=== PATIENT | male | born 1990 | race African-American/Black ===

== ENCOUNTER 2016-11-13 09:42 | Emergency (ER) | payer SELFPAY ==
[2016-11-13 10:16] LABS: #Basophils 0.1 thou/uL (0.0-0.2); #Eosinphils 0.1 thou/uL (0.0-0.7); #Monocytes 0.5 thou/uL (0.11-0.59); #Neutrophils 3.6 thou/uL (1.40-6.50); %Basophils 0.7 % (0.0-1.0); %Eosinophils 0.7 % (0.0-10.0); %Lymphocytes 48.7 % (21.0-51.0); %Monocytes 5.5 % (0.0-10.0); Hematocrit 45.3 % (42.0-52.0); Mean Platelet Volume 9.2 fL (7.4-10.4); Red Blood Cell (RBC) Count 4.97 mill/uL (4.70-6.10); White Blood Cell (WBC) Count 8.2 thou/uL (4.8-10.8)
[2016-11-13] MEDS ORDERED: Ondansetron HCl/PF 4 MG/2 ML Vial ONE (10:17)
[2016-11-13 10:51] LABS: ALT (SGPT) 17 U/L (8-55); AST (SGOT) 20 U/L (5-34); Alkaline Phosphatase 49 U/L (40-150); Anion Gap 15 mmol/L (10-20); BUN (Urea Nitrogen) 13 mg/dL (8.9-20.6); Bilirubin, Total 0.7 mg/dL (0.2-1.2); Calc. Creatinine Clearance 0 mL/min (70-130); Calcium 9.2 mg/dL (7.8-10.44); Carbon Dioxide 26 mmol/L (22-29); Chloride 103 mmol/L (98-107); Estimated GFR-MDRD 89; Protein, Total 7.4 g/dL (6.0-8.3)
[2016-11-13] MEDS ORDERED: Lidocaine Viscous Sol 2% 15 ml UD Cup ONE (10:56)
[2016-11-13] MEDS ORDERED: Famotidine/PF 20 mg/2ml Vial ONE ×2 (10:56→10:57)
[2016-11-13] MEDS ORDERED: Mag-Al 1200 mg/1200 mg/30 ML UDCUP ONE (10:56)
--- NOTE | 2016-11-13 12:25 | RAD ---
PORTABLE CHEST 1 VIEW: Date: 11/13/16 Time: 1112 hours HISTORY: Vomiting blood. FINDINGS: There are changes of median sternotomy. The heart size is normal. The lungs are well expanded withou t lobar consolidation, pneumothorax, or pleural effusions. IMPRESSION: No acute process. POS: [facility]
== END 2016-11-13 12:28 | disposition home or self-care (01) ==
LOC: ERS 09:42
DX: R11.2 Nausea with vomiting, unspecified (principal); F31.9 Bipolar disorder, unspecified; F17.210 Nicotine dependence, cigarettes, uncomplicated
CPT/HCPCS: 71010; 80053; 85025; 96361; 96374; 96375; J2405; S0028

== ENCOUNTER 2017-04-14 08:52 | Emergency (ER) | payer SELFPAY ==
--- NOTE | 2017-04-14 09:20 | RAD ---
RADIOGRAPH RIGHT HAND THREE VIEWS: Date: 04-14-17 History: 26-year-old male with traumatic finger injury. FINDINGS: Evaluation of the digits is limited on the AP and oblique views because they are mildly flexed. There is no evidence of fracture or dislocation of the digits on the lateral view. No osseous abnormality or radiopaque foreign body is visualized. IMPRESSION: Negative. POS: [facility]
[2017-04-14] MEDS ORDERED: Lidocaine 4% Cream 5 GM TUBE w/ Tegaderm ONE (09:37)
--- NOTE | 2017-04-14 09:54 | RAD ---
TWO VIEWS OF THE RIGHT MIDDLE FINGER: Date: 04-14-17 Comparison: None. History: Trauma, pain. FINDINGS: Frontal and oblique radiographs of the right third finger demonstrates soft tissue swelling distally. No radiopaque foreign body, displaced fracture, or evidence of dislocation. IMPRESSION: Distal soft tissue swelling. POS: [facility]
[2017-04-14] MEDS ORDERED: Bacitracin Zinc 1 Packet ONE (10:15)
[2017-04-14] MEDS ORDERED: Adacel (T-DAP) 0.5 ML VIAL ONE (10:15)
== END 2017-04-14 10:42 | disposition home or self-care (01) ==
LOC: ERS 08:52
DX: L03.011 Cellulitis of right finger (principal); F31.9 Bipolar disorder, unspecified; F17.210 Nicotine dependence, cigarettes, uncomplicated
CPT/HCPCS: 10060; 90471; 90715; 99406

== ENCOUNTER 2017-04-17 15:23 | Observation (INO) | payer OTHER, SELFPAY ==
[~2017-04-17 15:23] MED LIST: Heparin 1,000 UNITS/ML VIAL ONE
[2017-04-17 16:30] LABS: #Eosinphils 0.1 thou/uL (0.0-0.7); #Monocytes 0.9 thou/uL (0.11-0.59); #Neutrophils 5.2 thou/uL (1.40-6.50); %Basophils 0.2 % (0.0-1.0); %Lymphocytes 24.8 % (21.0-51.0); %Monocytes 10.6 % (0.0-10.0); %Neutrophils 63.5 % (42.0-75.0); Hemoglobin 13.7 g/dL (14.0-18.0); Mean Corpuscular HGB CONC 33.5 g/dL (32.0-36.0); Mean Corpuscular Volume 89.5 fl (80.0-94.0); Mean Platelet Volume 8.5 fL (7.4-10.4); Platelet Count 154 thou/uL (130-400); RBC Distribution Width 11.8 % (11.5-14.5); Red Blood Cell (RBC) Count 4.56 mill/uL (4.70-6.10); White Blood Cell (WBC) Count 8.2 thou/uL (4.8-10.8)
[2017-04-17] MEDS ORDERED: Fentanyl 100 MCG/2 ML VIAL ONE (16:46)
[2017-04-17 16:50] LABS: ALT (SGPT) 16 U/L (8-55); AST (SGOT) 20 U/L (5-34); Albumin 4.2 g/dL (3.5-5.0); Alkaline Phosphatase 69 U/L (40-150); Anion Gap 10 mmol/L (10-20); BUN (Urea Nitrogen) 9 mg/dL (8.9-20.6); Bilirubin, Total 0.3 mg/dL (0.2-1.2); CRP (Inflammatory) 3.87 mg/dL (= or < 0.5); Calc. Creatinine Clearance 0 mL/min (70-130); Calcium 9.3 mg/dL (7.8-10.44); Carbon Dioxide 25 mmol/L (22-29); Chloride 105 mmol/L (98-107); Estimated GFR-MDRD 85; Glucose 91 mg/dL (70-105); Magnesium 2.1 mg/dL (1.6-2.6); Protein, Total 7.2 g/dL (6.0-8.3); Sodium 136 mmol/L (136-145)
--- NOTE | 2017-04-17 16:55 | RAD ---
RADIOGRAPH RIGHT HAND 3 VIEWS: 04/17/17 HISTORY: 26-year-old male with increasing soft tissue swelling despite antibiotics. FINDINGS: There is diffuse soft tissue swelling of the third digit. There is no subcutaneous emphysema, soft ti ssue calcification, or radiopaque foreign body. Bone mineralization is normal. Joint spaces are maint ained without erosions or osteophytes. No permeative, osteolytic, or osteoblastic lesion. No perioste al elevation. No fracture or dislocation. IMPRESSION: 1. Diffuse soft tissue swelling (edema) of the right third digit. 2. Osseous structures are normal. POS: [facility]
[2017-04-17] MEDS ORDERED: Ondansetron HCl/PF 4 MG/2 ML Vial IVP PRN (18:21)
[2017-04-17] MEDS ORDERED: Ondansetron ODT 4 MG TAB SL PRN (18:21)
[2017-04-17] MEDS ORDERED: Sodium Chloride 0.45% 1,000 ML IV SCH (18:30)
[2017-04-17] MEDS: HYDROcodone/Acetaminophen 5/325 mg Tablet PO PRN ×2 (18:49→23:59)
[2017-04-17 19:32] VITALS: BMI 33.2
--- NOTE | 2017-04-17 22:26 | HP ---
CHIEF COMPLAINT: Right hand pain. HISTORY OF PRESENT ILLNESS: Haseeb is a 26-year-old male who crushed his fingertip at work [employer] 1 week ago. He was seen in the emergency department after he developed an infection of this fin gertip. This was 3 days ago. He had a bedside I&D and was given antibiotics. He felt to have impro tommy. He worsened today. He developed increasing swelling and pain. He presented again to the emerg ency department and has been admitted now with flexor tenosynovitis of the finger. He has been afebr ile. He has had no open wounds or drainage over the last 2 days. He has been on Bactrim. PAST MEDICAL HISTORY: He denies active medical problems. PAST SURGICAL HISTORY: None. SOCIAL HISTORY: The patient denies tobacco or alcohol use. He does use marijuana. FAMILY HISTORY: Noncontributory. REVIEW OF SYSTEMS: Positive for right hand pain, otherwise negative for 10-point review of systems. LABORATORY STUDIES: White blood cell count is 8.2. CRP is elevated at 3.87. IMAGES: X-rays of the hand are negative. PHYSICAL EXAMINATION: VITAL SIGNS: Temperature is 98.5, pulse is 85, respiratory rate 18, 99% on room air. GENERAL: The patient is alert, sitting upright, in no apparent distress. HEENT: Normocephalic, atraumatic. RESPIRATORY: Breathing comfortably. ABDOMEN: Soft, nontender, and nondistended. MUSCULOSKELETAL: The patient's right third digit has swelling distally. He is tender to palpation a long the flexor tendon sheath to the distal aspect of the palm. He has pain to palpation as well as range of motion. He has evidence of trauma to the finger tip and a paronychia with inflammation. IMPRESSION: Paronychial infection, which has spread to a flexor tenosynovitis. PLAN: At this point, the patient will benefit from irrigation and debridement in the operating room. He is aware of risks of surgery as well as his condition, which is flexor tenosynovitis. This can lead to complications such as stiffness, pain and has led to even amputation in the past. He wants t o proceed with this. He will continue with vancomycin and Zosyn. He will be n.p.o. at midnight for surgery tomorrow morning. He will likely need to be in the hospital 2-3 days.
[2017-04-17] MEDS: Fentanyl 100 MCG/2 ML VIAL SLOW IVP PRN (23:10)
[2017-04-18] MEDS: Vancomycin HCl 1.5 GM in Sodium Chloride 0.9% 250 ML 300 ML IVPB SCH ×2 (05:05→17:22)
[2017-04-18] MEDS: Fentanyl 100 MCG/2 ML VIAL SLOW IVP PRN (05:06)
[2017-04-18] MEDS ORDERED: Dexamethasone 20 MG/5 ML VIAL ONE (07:09)
[2017-04-18] MEDS ORDERED: Lidocaine 1% PF 5 ML VIAL ONE (07:09)
[2017-04-18] MEDS ORDERED: Ondansetron HCl/PF 4 MG/2 ML Vial ONE (07:09)
[2017-04-18] MEDS ORDERED: PROPOFOL 200 MG/20 ML VIAL ONE (07:09)
[2017-04-18] MEDS ORDERED: Midazolam HCl 2 mg/2 ml Vial ONE ×2 (09:21→09:36)
[2017-04-18] MEDS ORDERED: Neomycin-Polymyxin 1 ML AMP ONE ×2 (09:30→09:49)
[2017-04-18] MEDS ORDERED: Fentanyl 250 MCG/5 ML VIAL ONE ×2 (09:36→10:46)
[2017-04-18] MEDS ORDERED: Bupivacaine 0.25% HCL 30 ML VIAL ONE (09:49)
[2017-04-18] MEDS ORDERED: Promethazine HCl 25 MG/ML VIAL IM PRN (10:30)
[2017-04-18] MEDS ORDERED: Promethazine HCl 25 MG/ML VIAL SLOW IVP PRN (10:30)
[2017-04-18] MEDS ORDERED: Ondansetron HCl/PF 4 MG/2 ML Vial IVP PRN (10:30)
--- NOTE | 2017-04-18 14:30 | OP ---
DATE OF OPERATION: 04/18/2017 OPERATION: Irrigation and debridement of right third digit felon and tenosynovitis of the digit and palm. PREOPERATIVE DIAGNOSIS: Right third digit infection with a flexor tenosynovitis. POSTOPERATIVE DIAGNOSIS: Right third digit infection with a flexor tenosynovitis. COMPLICATIONS: None. ESTIMATED BLOOD LOSS: Minimal. SURGEON: Royce Collins M.D. ANESTHESIA: General plus local. DESCRIPTION OF PROCEDURE: The patient's right arm was prepped and draped in sterile fashion. We gav e him intravenous antibiotics. A tourniquet was inflated. At this point, the right finger was incis ed. We made an incision first over the radial aspect of the distal digit. We encountered copious pu rulence. There was a large abscess with necrotic tissue underneath. There was exposed distal phalan x, bone and nail. We thoroughly irrigated this and cultured. We then made an incision over the flex or crease of the DIP joint. A second incision was made over the palm. We worked more deeply down to the tendon sheath. We inserted an Angiocath and thoroughly irrigated the sheath. There was pus wit hin the sheath as well. We used irrigant. Once we eradicated all of the purulence, we proceeded with packing of the distal wound with iodoform gauze as well as dip wound. We loosely closed the rem aining wounds. A sterile dressing was applied. The patient was taken to the recovery room in good c ondition without complication.
[2017-04-18] MEDS: cefTRIAXone\\ROCEPHIN 1 GM, Syringe 0.4 ML in Sterile Water 9.6 ML SLOW IVP SCH (17:23)
[2017-04-18] MEDS: HYDROcodone/Acetaminophen 5/325 mg Tablet PO PRN ×2 (17:23→22:28)
[2017-04-19] MEDS: HYDROcodone/Acetaminophen 5/325 mg Tablet PO PRN ×3 (05:28→20:33)
[2017-04-19] MEDS: Vancomycin HCl 1.5 GM in Sodium Chloride 0.9% 250 ML 300 ML IVPB SCH ×2 (05:29→17:30)
[2017-04-19 05:31] LABS: #Eosinphils 0.1 thou/uL (0.0-0.7); #Lymphocytes 2.4 thou/uL (1.20-3.40); #Monocytes 0.9 thou/uL (0.11-0.59); %Basophils 0.1 % (0.0-1.0); %Eosinophils 0.7 % (0.0-10.0); %Lymphocytes 28.7 % (21.0-51.0); %Monocytes 10.7 % (0.0-10.0); %Neutrophils 59.8 % (42.0-75.0); Hemoglobin 12.5 g/dL (14.0-18.0); Mean Corpuscular HGB CONC 32.7 g/dL (32.0-36.0); Mean Corpuscular Hemoglobin 29.5 pg (27.0-31.0); Mean Platelet Volume 8.5 fL (7.4-10.4); Platelet Count 179 thou/uL (130-400); RBC Distribution Width 11.7 % (11.5-14.5); Red Blood Cell (RBC) Count 4.24 mill/uL (4.70-6.10); White Blood Cell (WBC) Count 8.3 thou/uL (4.8-10.8)
[2017-04-19] MEDS: Fentanyl 100 MCG/2 ML VIAL SLOW IVP PRN (10:51)
[2017-04-19] MEDS: cefTRIAXone\\ROCEPHIN 1 GM, Syringe 0.4 ML in Sterile Water 9.6 ML SLOW IVP SCH (16:39)
[2017-04-19] MEDS ORDERED: VANCOMYCIN IV IVPB PRN (20:03)
[2017-04-20] MEDS: HYDROcodone/Acetaminophen 5/325 mg Tablet PO PRN ×3 (05:08→21:10)
[2017-04-20 05:49] LABS: Vancomycin, Trough 12.1 ug/mL
[2017-04-20] MEDS: Vancomycin HCl 1.75 GM in Sodium Chloride 0.9% 500 ML IVPB SCH ×3 (06:11→22:09)
[2017-04-20] MEDS: Fentanyl 100 MCG/2 ML VIAL SLOW IVP PRN ×2 (08:26→10:36)
[2017-04-20] MEDS: Lidocaine 4% Topical Sol 50 ML BOT TOP SCH (10:40)
--- NOTE | 2017-04-20 13:02 | CON ---
DATE OF CONSULTATION: 04/20/2017 REASON FOR CONSULTATION: Tenosynovitis. 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 The patient was seen at the emergency room after development of inflammatory changes , had a limited debridement. It does not appear that any samples were submitted for cultures and the patient was released on antimicrobial therapy because of persistence and worsening of inflammatory p rocess. The patient returned to the emergency room 2 days ago, has been admitted for management. Joseph whitehead had surgical intervention by Dr. Collins and there was evidence of abscess in necrotic tissue underneath, copious purulence and there was exposed distal phalanx, bone and nail. This was irrigat ed and an Angiocath was used to irrigate the sheath of the tendon with purulent exudate obtained, the area was packed. Currently, denies any headaches, visual symptoms, sore throat, odynophagia, dyspha rahel, no cough or sputum production or chest pain. No abdominal pain, diarrhea, or genitourinary symp toms. No other joint symptoms or neurological symptoms. 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 Also bipolar disorder. SOCIAL HISTORY: Current every other day smoker, drinks occasionally. Works in a [employer] in [facility]. FAMILY HISTORY: Noncontributory. ALLERGY HISTORY: Negative. MEDICINES: Had been on ibuprofen and Bactrim and currently receiving ceftriaxone, lidocaine and vanc omycin. PHYSICAL EXAMINATION: VITAL SIGNS: Temperature max 98.9, blood pressure 129/79, pulse 68, respirations 16, O2 sat 98%. GENERAL: Appears in no distress, pleasant. SKIN: Right hand has a dressing which was not removed. No lymphadenopathy. HEENT: Normal. NECK: Supple. LUNGS: With symmetric clear breath sounds. HEART: S1, S2, regular rate. No S3, S4. ABDOMEN: Soft, not distended or tender. GENITOURINARY: No genital abnormalities. NEUROLOGIC: Nonfocal. LABORATORY DATA: White cell count 8.2, hemoglobin 13, platelets 154 with normal differential. Chemi stry essentially normal except for CRP 83.87. Microbiology with alpha hemolytic streptococcus identi fied from the surgical specimen yet to be fully identified and susceptibility tested. ASSESSMENT: Injury to right hand middle finger distal aspect with development of possible likely ost eomyelitis and tenosynovitis following paronychia. DISCUSSION: The patient to continue Rocephin and vancomycin until have the final identification and susceptibility testing of the organism and then depending on results, may need placement of PICC line or not. According to susceptibility results, nonetheless, will need treatment for at least 3 weeks if not longer, probably longer in view of the likely bone involvement. Check HIV and hepatitis C ser ology.
--- NOTE | 2017-04-20 13:51 | PRG ---
DATE OF SERVICE: 04/20/2017 SUBJECTIVE: Timmy was now postop day #2 from incision, drainage, washout of a failed flexor tenosynov itis treated as an outpatient. He is currently on Rocephin and vancomycin and I believe Dr. Pallavi rodriguez recommended continuing this until final susceptibilities arrived. The preliminary cultures demonst rated alpha hemolytic streptococcus. PHYSICAL EXAMINATION: EXTREMITIES: There is no significant drainage. He has good digital excursion. Dressing is intact. ASSESSMENT: A 26-year-old -[place] male with a right index finger flexor tenosynovitis with Streptococcus, sensitivities pending. PLAN: Continue antibiotics. We will probably discharge with antibiotic recommendations once final s ensitivity of urine.
[2017-04-20 14:26] LABS: HIV (1/2) Antibody/Antigen Non-Reactive (NonReactive); HIV 1/2 INDEX 0.13 S/CO (<1.00); Hep C IgG Ab Non-Reactive (NonReactive); Hep C Index 0.09 S/CO (0-0.79)
[2017-04-20] MEDS: cefTRIAXone\\ROCEPHIN 1 GM, Syringe 0.4 ML in Sterile Water 9.6 ML SLOW IVP SCH (18:31)
[2017-04-21] MEDS: HYDROcodone/Acetaminophen 5/325 mg Tablet PO PRN ×4 (05:57→21:32)
[2017-04-21] MEDS: Vancomycin HCl 1.75 GM in Sodium Chloride 0.9% 500 ML IVPB SCH (05:57)
[2017-04-21] MEDS: Fentanyl 100 MCG/2 ML VIAL SLOW IVP PRN (10:03)
[2017-04-21] MEDS: Lidocaine 4% Topical Sol 50 ML BOT TOP SCH (10:57)
--- NOTE | 2017-04-21 15:55 | PRG ---
DATE OF SERVICE: 04/21/2017 SUBJECTIVE: Feeling well. Minor pain, right hand. No respiratory symptoms or abdominal pain, no di arrhea. OBJECTIVE: VITAL SIGNS: Temperature normal. LUNGS: Clear. HEART: S1, S2, regular rate. ABDOMEN: Soft. Right hand with bulky dressing not removed. LABORATORY DATA: Microbiology with Streptococcus anginosus group. ASSESSMENT AND DISCUSSION: Injury of right hand middle finger with osteomyelitis and tenosynovitis f ollowing paronychia. We will continue Rocephin for a few weeks. Monitor labs and eventually transit ioned to oral Augmentin at the end of 2-4 weeks of treatment with IV Rocephin. We will arrange hospital for behavioral medicine Oncology fusion area.
[2017-04-21 17:24] LABS: Vancomycin, Trough 14.9 ug/mL
[2017-04-21] MEDS: cefTRIAXone\\ROCEPHIN 1 GM, Syringe 0.4 ML in Sterile Water 9.6 ML SLOW IVP SCH (17:43)
[2017-04-22] MEDS: HYDROcodone/Acetaminophen 5/325 mg Tablet PO PRN ×2 (08:16→12:44)
[2017-04-22] MEDS: Fentanyl 100 MCG/2 ML VIAL SLOW IVP PRN (09:29)
[2017-04-22] MEDS: Lidocaine 4% Topical Sol 50 ML BOT TOP SCH (10:33)
[2017-04-22 15:26] VITALS: BP 124/85; TEMP 98.5
--- NOTE | 2017-04-22 16:04 | SPC ---
SONOGRAPHIC-GUIDED LEFT UPPER EXTREMITY PICC PLACEMENT: HISTORY: Osteomyelitis. FINDINGS: After explaining the procedure and answering all questions, the left upper extremity was prepped and draped in the usual sterile fashion. Sterile technique, buffered local anesthesia, sonographic allan nce, and a 22 gauge needle were used to carefully access the left basilic vein. Standard technique w as then used to place the tip of a 5 [place]ic single-lumen PICC so that the tip lies at the level of th e cerebrovascular accident. Catheter was flushed and secured externally. The patient tolerated the procedure well and was returned in unchanged condition. Fluoro time=0 seconds. IMPRESSION: Left upper extremity PICC is ready for use. POS: [facility]
--- NOTE | 2017-04-23 15:38 | DIS ---
DATE OF ADMISSION: 04/17/2017 DATE OF DISCHARGE: 04/22/2017 ADMITTING DIAGNOSIS: Flexor tenosynovitis. PROCEDURES PERFORMED Irrigation and debridement of right hand third digit, thumb and tenosynovitis o f the digit and palm ADMITTING PHYSICIAN: Dr. Royce Collins CONSULTS: Dr. Olivo BRIEF HOSPITAL COURSE: This is a 26-year-old male who presented to the emergency department with rig ht hand third digit flexor tenosynovitis. The patient has failed outpatient therapy. The patient wa s admitted, taken to the operating room for irrigation and debridement. He was placed on IV antibiot ics per the Infectious Disease team. A PICC line was placed. The patient recovered well. The patie nt received vancomycin and Rocephin IV while in the hospital. The patient was tolerating p.o., ambul ating and voiding without difficulty upon discharge. DISCHARGE DISPOSITION: Home. DISCHARGE CONDITION: Stable. PROGNOSIS: Good. DISCHARGE MEDICATIONS: See medication reconciliation. The patient was instructed to follow up with Infectious Disease, Wound Care, and Orthopedics as outpa tient.
== END 2017-04-22 15:21 | disposition home or self-care (01) ==
LOC: ERS 15:23 → SURG A 16:21
PROVIDERS: ADMIT Orthopaedic Surgery; ATTEND Orthopaedic Surgery
PROC: 0L870ZZ Division of Right Hand Tendon, Open Approach (ICD-10-PCS; principal; 2017-04-18)
DX: M65.841 Other synovitis and tenosynovitis, right hand (principal); L03.011 Cellulitis of right finger; F17.200 Nicotine dependence, unspecified, uncomplicated; Z79.2 Long term (current) use of antibiotics
CPT/HCPCS: 29125; 36415; 36569; 80053; 80202; 83735; 85025; 86140; 86803; 87040; 87070; 87205; 87389; 96365; 96366; 96375; 96376; 99406; A4216; C1751; G0378; J0696; J1100; J1644; J2001; J2250; J2405; J2704; J3010; J3370; J7050; S0020

== ENCOUNTER 2017-04-28 09:11 | Outpatient (CLI) | payer SELFPAY ==
[2017-04-28] MEDS ORDERED: Sodium Chloride 0.9% 15 ML NEB ONE (16:38)
== END 2017-04-28 09:12 | disposition home or self-care (01) ==
LOC: WCC 09:11
PROVIDERS: ATTEND Family Medicine
DX: T81.89XD Other complications of procedures, not elsewhere classified, subsequent encounter (principal)
CPT/HCPCS: 99211; A4218; G0463

== ENCOUNTER 2018-04-15 14:19 | Emergency (ER) | payer OTHER, SELFPAY ==
--- NOTE | 2018-04-15 16:09 | RAD ---
PA AND LATERAL CHEST: Date: 04/15/18 INDICATION: Difficulty breathing. COMPARISON: Prior exam dated 02/15/09. FINDINGS: Midline sternotomy changes are stable. Heart size is within normal limits. Lungs are clear. No acute osseous abnormality is evident. IMPRESSION: No acute cardiopulmonary abnormality. POS: [facility]
[2018-04-15 16:45] LABS: #Basophils 0.1 thou/uL (0.0-0.2); #Eosinphils 0.1 thou/uL (0.0-0.7); #Lymphocytes 2.8 thou/uL (1.20-3.40); #Monocytes 0.5 thou/uL (0.11-0.59); #Neutrophils 4.2 thou/uL (1.40-6.50); %Basophils 0.7 % (0.0-1.0); %Eosinophils 1.8 % (0.0-10.0); %Monocytes 6.2 % (0.0-10.0); %Neutrophils 54.4 % (42.0-75.0); Hemoglobin 14.7 g/dL (14.0-18.0); Mean Corpuscular HGB CONC 32.4 g/dL (32.0-36.0); Mean Corpuscular Hemoglobin 29.6 pg (27.0-31.0); Mean Corpuscular Volume 91.4 fL (78.0-98.0); Mean Platelet Volume 9.5 fL (7.4-10.4); Platelet Count 157 thou/uL (130-400); RBC Distribution Width 12.3 % (11.5-14.5); Red Blood Cell (RBC) Count 4.96 mill/uL (4.70-6.10); White Blood Cell (WBC) Count 7.6 thou/uL (4.8-10.8)
[2018-04-15 17:09] LABS: ALT (SGPT) 15 U/L (8-55); AST (SGOT) 18 U/L (5-34); Albumin 4.5 g/dL (3.5-5.0); Alkaline Phosphatase 60 U/L (40-150); Anion Gap 12 mmol/L (10-20); BUN (Urea Nitrogen) 10 mg/dL (8.9-20.6); Bilirubin, Total 0.4 mg/dL (0.2-1.2); CK (CPK) 266 U/L (30-200); Calc. Creatinine Clearance 0 mL/min (70-130); Calcium 9.9 mg/dL (7.8-10.44); Carbon Dioxide 27 mmol/L (22-29); Chloride 106 mmol/L (98-107); Estimated GFR-MDRD Greater than 90; Globulin 3.1 g/dL (2.4-3.5); Glucose 83 mg/dL (70-105); Lipase 12 U/L (8-78); Potassium 3.8 mmol/L (3.5-5.1); Protein, Total 7.6 g/dL (6.0-8.3); Sodium 141 mmol/L (136-145)
== END 2018-04-15 17:48 | disposition home or self-care (01) ==
LOC: ERS 14:19
DX: R07.81 Pleurodynia (principal); F31.9 Bipolar disorder, unspecified; F17.210 Nicotine dependence, cigarettes, uncomplicated
CPT/HCPCS: 71046; 80053; 82550; 83690; 83880; 84484; 85025; 85379; 93005; 94760

== ENCOUNTER 2018-05-14 10:53 | Emergency (ER) | payer SELFPAY ==
[2018-05-14] MEDS ORDERED: Ondansetron PF 4 MG/2 ML Vial ONE (11:37)
[2018-05-14 12:06] LABS: #Lymphocytes 2.5 thou/uL (1.20-3.40); #Monocytes 0.5 thou/uL (0.11-0.59); #Neutrophils 5.7 thou/uL (1.40-6.50); %Basophils 0.5 % (0.0-1.0); %Eosinophils 0.4 % (0.0-10.0); %Lymphocytes 28.5 % (21.0-51.0); %Monocytes 6.1 % (0.0-10.0); %Neutrophils 64.4 % (42.0-75.0); Hemoglobin 14.4 g/dL (14.0-18.0); Mean Corpuscular HGB CONC 33.8 g/dL (32.0-36.0); Mean Corpuscular Hemoglobin 30.2 pg (27.0-31.0); Mean Corpuscular Volume 89.3 fL (78.0-98.0); Mean Platelet Volume 9.8 fL (7.4-10.4); Platelet Count 145 thou/uL (130-400); RBC Distribution Width 12.3 % (11.5-14.5); Red Blood Cell (RBC) Count 4.77 mill/uL (4.70-6.10); White Blood Cell (WBC) Count 8.8 thou/uL (4.8-10.8)
[2018-05-14 12:31] LABS: ALT (SGPT) 21 U/L (8-55); AST (SGOT) 20 U/L (5-34); Albumin 4.8 g/dL (3.5-5.0); Alkaline Phosphatase 60 U/L (40-150); Anion Gap 13 mmol/L (10-20); BUN (Urea Nitrogen) 8 mg/dL (8.9-20.6); Bilirubin, Total 0.6 mg/dL (0.2-1.2); Calc. Creatinine Clearance 0 mL/min (70-130); Calcium 10.2 mg/dL (7.8-10.44); Carbon Dioxide 28 mmol/L (22-29); Chloride 103 mmol/L (98-107); Estimated GFR-MDRD 81; Globulin 2.9 g/dL (2.4-3.5); Glucose 97 mg/dL (70-105); Lipase 5 U/L (8-78); Potassium 3.7 mmol/L (3.5-5.1); Protein, Total 7.7 g/dL (6.0-8.3); Sodium 140 mmol/L (136-145)
== END 2018-05-14 13:22 | disposition home or self-care (01) ==
LOC: ERS 10:53
DX: R11.2 Nausea with vomiting, unspecified (principal); R19.7 Diarrhea, unspecified; F31.9 Bipolar disorder, unspecified; F17.200 Nicotine dependence, unspecified, uncomplicated
CPT/HCPCS: 80053; 83690; 85025; 96361; 96374; J2405

== ENCOUNTER 2018-08-14 18:44 | Emergency (ER) | payer SELFPAY | END 2018-08-14 19:06 | disposition home or self-care (01) | LOC: ERS 18:44 | DX: H61.22 Impacted cerumen, left ear (principal); F31.9 Bipolar disorder, unspecified | CPT/HCPCS: 99282 ==

== ENCOUNTER 2019-10-21 01:26 | Emergency (ER) | payer SELFPAY ==
[2019-10-21 02:45] LABS: Bilirubin Negative (Negative); Blood, Urine Negative (Negative); Clarity Clear (Clear); Glucose, Urine (Dipstick) Normal (Negative); Ketone, Urine Negative (Negative); Leukocyte Negative Leu/uL (Negative); Nitrite Negative (Negative); Protein, Urine (Dipstick) Negative (Neg-Trace); Specific Gravity, Urine 1.024 (1.002-1.036); Urobilinogen Normal mg/dL (Less than 2)
[2019-10-21] MEDS ORDERED: Lidocaine 1% PF 5 ML VIAL ONE (02:51)
[2019-10-21] MEDS ORDERED: cefTRIAXone\\ROCEPHIN 250 MG VIAL ONE (02:51)
[2019-10-21] MEDS ORDERED: Azithromycin 250 MG TAB ONE (02:51)
[2019-10-22 16:03] LABS: Chlam.trachomatis by PCR,Urine Not Detected (NotDetected)
== END 2019-10-21 03:00 | disposition home or self-care (01) ==
LOC: ERS 01:26
DX: N50.89 Other specified disorders of the male genital organs (principal); Z20.2 Contact with and (suspected) exposure to infections with a predominantly sexual mode of transmission; F31.9 Bipolar disorder, unspecified
CPT/HCPCS: 81003; 87255; 87491; 87591; 96372; 99283; J0696

== ENCOUNTER 2019-11-30 18:11 | Emergency (ER) | payer SELFPAY ==
[2019-11-30 18:28] LABS: #Eosinphils 0.1 thou/uL (0.0-0.7); #Lymphocytes 4.9 thou/uL (1.20-3.40); #Monocytes 0.7 thou/uL (0.11-0.59); %Basophils 0.3 % (0.0-1.0); %Eosinophils 0.9 % (0.0-10.0); %Lymphocytes 45.6 % (21.0-51.0); %Monocytes 6.2 % (0.0-10.0); Hemoglobin 14.6 g/dL (14.0-18.0); Mean Corpuscular HGB CONC 33.2 g/dL (32.0-36.0); Mean Corpuscular Hemoglobin 29.7 pg (27.0-31.0); Mean Corpuscular Volume 89.3 fL (78.0-98.0); Mean Platelet Volume 9.8 fL (7.4-10.4); Platelet Count 171 thou/uL (130-400); RBC Distribution Width 12.8 % (11.5-14.5); Red Blood Cell (RBC) Count 4.94 mill/uL (4.70-6.10); White Blood Cell (WBC) Count 10.7 thou/uL (4.8-10.8)
[2019-11-30 18:35] LABS: Prothrombin Time 11.8 sec (12.0-14.7)
[2019-11-30 18:36] LABS: INR-International Normal Ratio 0.9
--- NOTE | 2019-11-30 18:41 | CT ---
CT OF BRAIN PERFORMED WITHOUT CONTRAST ENHANCEMENT: 11/30/19 HISTORY: Left sided facial droop. The ventricular and cisternal system is within normal limits. There is no signs of intracerebral hemo rrhage or extra-axial fluid collection. The mastoid air cells and visualized sinuses are clear. IMPRESSION: No acute intracranial abnormalities. Findings telephoned to Doroteo Vance at 1834 hours. POS: [facility]
[2019-11-30 18:52] LABS: ALT (SGPT) 27 U/L (8-55); AST (SGOT) 24 U/L (5-34); Albumin 4.5 g/dL (3.5-5.0); Alkaline Phosphatase 59 U/L (40-110); Anion Gap 15 mmol/L (10-20); BUN (Urea Nitrogen) 11 mg/dL (8.9-20.6); Bilirubin, Total 0.3 mg/dL (0.2-1.2); Calc. Creatinine Clearance 0 mL/min (70-130); Calcium 9.8 mg/dL (7.8-10.44); Carbon Dioxide 26 mmol/L (22-29); Chloride 105 mmol/L (98-107); Estimated GFR-MDRD 73; Globulin 3.5 g/dL (2.4-3.5); Glucose 106 mg/dL (70-105); Potassium 3.7 mmol/L (3.5-5.1); Sodium 142 mmol/L (136-145)
--- NOTE | 2019-12-02 11:17 | EKG ---
Test Reason : Blood Pressure : / mmHG Vent. Rate : 105 BPM Atrial Rate : 105 BPM P-R Int : 142 ms QRS Dur : 076 ms QT Int : 336 ms P-R-T Axes : 056 000 046 degrees QTc Int : 444 ms Sinus tachycardia Possible Left atrial enlargement Left ventricular hypertrophy Abnormal ECG Confirmed by KATIE GUO ([id number]), loan expeditor JOÃO NAVARRETE ([id number]) on 12/02/2019 11:16:51 AM Referred By: Confirmed By:KATIE GUO
== END 2019-11-30 19:15 | disposition home or self-care (01) ==
LOC: ERS 18:11
DX: G51.0 Bell's palsy (principal); N17.9 Acute kidney failure, unspecified; F31.9 Bipolar disorder, unspecified; F41.9 Anxiety disorder, unspecified
CPT/HCPCS: 36416; 70450; 80053; 85025; 85610; 85730; 93005

== ENCOUNTER 2020-04-07 03:08 | Emergency (ER) | payer SELFPAY ==
[2020-04-07] MEDS ORDERED: Dexamethasone 4 MG TAB ONE (04:12)
[2020-04-07] MEDS ORDERED: Bicillin LA 1.2 MILLION UNITS/2 ML SYRINGE ONE (04:18)
== END 2020-04-07 04:45 | disposition home or self-care (01) ==
LOC: ERS 03:08
DX: J02.0 Streptococcal pharyngitis (principal)
CPT/HCPCS: 87430; 96372; 99283; J0561; J8540

== ENCOUNTER 2020-12-16 10:30 | Emergency (ER) | payer SELFPAY ==
[2020-12-16] MEDS ORDERED: Acetaminophen 500 MG TAB ONE (11:44)
[2020-12-16] MEDS ORDERED: Ketorolac Tromethamine 30 MG/ML VIAL ONE (11:44)
[2020-12-16 12:00] LABS: #Eosinphils 0.1 thou/uL (0.0-0.7); #Lymphocytes 2.5 thou/uL (1.20-3.40); #Monocytes 0.4 thou/uL (0.11-0.59); #Neutrophils 2.4 thou/uL (1.40-6.50); %Basophils 0.5 % (0.0-1.0); %Eosinophils 2.1 % (0.0-10.0); %Lymphocytes 45.6 % (21.0-51.0); %Monocytes 7.5 % (0.0-10.0); %Neutrophils 44.4 % (42.0-75.0); Hemoglobin 14.1 g/dL (14.0-18.0); Mean Corpuscular HGB CONC 33.1 g/dL (32.0-36.0); Mean Corpuscular Hemoglobin 29.4 pg (27.0-31.0); Mean Platelet Volume 9.4 fL (7.4-10.4); Platelet Count 167 thou/uL (130-400); RBC Distribution Width 12.6 % (11.5-14.5); Red Blood Cell (RBC) Count 4.81 mill/uL (4.70-6.10); White Blood Cell (WBC) Count 5.4 thou/uL (4.8-10.8)
[2020-12-16 12:24] LABS: Anion Gap 10 mmol/L (10-20); BUN (Urea Nitrogen) 12 mg/dL (8.9-20.6); Calc. Creatinine Clearance 0 mL/min (70-130); Calcium 9.3 mg/dL (7.8-10.44); Carbon Dioxide 28 mmol/L (22-29); Chloride 109 mmol/L (98-107); Glucose 96 mg/dL (70-105); Potassium 4.2 mmol/L (3.5-5.1); Sodium 143 mmol/L (136-145)
[2020-12-16] MEDS ORDERED: Cyclobenzaprine 10 MG TAB ONE (12:55)
== END 2020-12-16 14:45 | disposition home or self-care (01) ==
LOC: ERS 10:30
DX: M54.31 Sciatica, right side (principal); I10 Essential (primary) hypertension; G51.0 Bell's palsy
CPT/HCPCS: 36415; 80048; 85025; 85379; 96372; 99283; J1885

== ENCOUNTER 2021-01-25 10:25 | Emergency (ER) | payer SELFPAY ==
[2021-01-25 13:11] LABS: ALT (SGPT) 20 U/L (8-55); AST (SGOT) 22 U/L (5-34); Albumin 4.6 g/dL (3.5-5.0); Alkaline Phosphatase 56 U/L (40-110); Anion Gap 13 mmol/L (10-20); BUN (Urea Nitrogen) 11 mg/dL (8.9-20.6); Bilirubin, Total 0.8 mg/dL (0.2-1.2); Calc. Creatinine Clearance 0 mL/min (70-130); Calcium 9.9 mg/dL (7.8-10.44); Carbon Dioxide 26 mmol/L (22-29); Chloride 103 mmol/L (98-107); Globulin 3.3 g/dL (2.4-3.5); Glucose 88 mg/dL (70-105); Potassium 4.2 mmol/L (3.5-5.1); Protein, Total 7.9 g/dL (6.0-8.3); Sodium 138 mmol/L (136-145)
[2021-01-25 13:28] LABS: HIV (1/2) Antibody/Antigen Non-Reactive (NonReactive); HIV 1/2 INDEX 0.15 S/CO (<1.00)
[2021-01-25] MEDS ORDERED: Ketorolac Tromethamine 30 MG/ML VIAL ONE (14:45)
[2021-01-26 15:20] LABS: Syphilis Antibody Index 5.26 S/CO (<1.00 Non-Reactive)
[2021-01-26 16:35] LABS: Syphilis Antibody INDETERMINATE (Nonreactive)
[2021-01-29 02:56] LABS: Chlam.trachomatis by PCR,Urine Not Detected (NotDetected)
== END 2021-01-25 16:30 | disposition home or self-care (01) ==
LOC: ERS 10:25
DX: R20.2 Paresthesia of skin (principal); M79.605 Pain in left leg; N39.9 Disorder of urinary system, unspecified; I10 Essential (primary) hypertension
CPT/HCPCS: 36415; 80053; 86593; 86780; 87389; 87491; 87591; 96372; J1885

== ENCOUNTER 2022-02-19 16:11 | Emergency (ER) | payer OTHER, SELFPAY ==
[2022-02-19] MEDS ORDERED: Cyclobenzaprine 10 MG TAB ONE (16:46)
[2022-02-19] MEDS ORDERED: Ketorolac Tromethamine 30 MG/ML VIAL ONE (16:46)
== END 2022-02-19 18:49 | disposition home or self-care (01) ==
LOC: ERS 16:11
DX: M62.830 Muscle spasm of back (principal); I10 Essential (primary) hypertension; V89.2XXA Person injured in unspecified motor-vehicle accident, traffic, initial encounter
CPT/HCPCS: 72050; 72072; 72110; 96372; J1885

== ENCOUNTER 2022-02-21 14:04 | Emergency (ER) | payer SELFPAY ==
[2022-02-21] MEDS ORDERED: Acetaminophen 500 MG TAB ONE (14:14)
== END 2022-02-21 15:43 | disposition home or self-care (01) ==
LOC: ERS 14:04
DX: B34.9 Viral infection, unspecified (principal); I10 Essential (primary) hypertension; G51.0 Bell's palsy; Z20.822 Contact with and (suspected) exposure to COVID-19; Z79.899 Other long term (current) drug therapy
CPT/HCPCS: 87804; 99283; U0003; U0005

== ENCOUNTER 2022-05-20 12:11 | Emergency (ER) | payer SELFPAY ==
[2022-05-20 13:31] LABS: SARS-CoV-2 NAA Rapid Test Not Detected (NotDetected)
== END 2022-05-20 12:53 | disposition home or self-care (01) ==
LOC: ERS 12:11
DX: J00 Acute nasopharyngitis [common cold] (principal); I10 Essential (primary) hypertension; Z20.822 Contact with and (suspected) exposure to COVID-19
CPT/HCPCS: 99283; U0002

== ENCOUNTER 2022-09-21 16:21 | Outpatient (CLI) | payer OTHER | END 2022-09-21 16:22 | disposition home or self-care (01) | LOC: SCSRAD 16:21 | PROVIDERS: ATTEND Nurse Practitioner Family | DX: S69.92XA Unspecified injury of left wrist, hand and finger(s), initial encounter (principal); S62.625A Displaced fracture of middle phalanx of left ring finger, initial encounter for closed fracture ==

== ENCOUNTER 2022-09-29 14:44 | Emergency (ER) | payer OTHER, SELFPAY ==
[2022-09-29] MEDS ORDERED: Ketorolac Tromethamine 30 MG/ML VIAL ONE (15:07)
== END 2022-09-29 16:06 | disposition home or self-care (01) ==
LOC: ERS 14:44
DX: M54.2 Cervicalgia (principal); M54.9 Dorsalgia, unspecified; V49.9XXA Car occupant (driver) (passenger) injured in unspecified traffic accident, initial encounter
CPT/HCPCS: 70450; 72125; 72128; 72131; 96372; J1885

== ENCOUNTER 2022-10-11 09:26 | Emergency (ER) | payer SELFPAY ==
[2022-10-11] MEDS ORDERED: Acetaminophen 500 MG TAB ONE (10:35)
== END 2022-10-11 11:25 | disposition home or self-care (01) ==
LOC: ERS 09:26
DX: U07.1 COVID-19 (principal)
CPT/HCPCS: 87635; 99284

== ENCOUNTER 2022-12-23 11:19 | Emergency (ER) | payer OTHER, SELFPAY ==
[2022-12-23 13:00] LABS: SARS-CoV-2 NAA Rapid Test Not Detected (NotDetected)
== END 2022-12-23 12:12 | disposition home or self-care (01) ==
LOC: ERS 11:19
DX: U07.1 COVID-19 (principal)
CPT/HCPCS: 99283

== ENCOUNTER 2023-07-30 10:52 | Emergency (ER) | payer SELFPAY | END 2023-07-30 12:15 | disposition home or self-care (01) | LOC: ERS 10:52 | DX: B86 Scabies (principal); F17.290 Nicotine dependence, other tobacco product, uncomplicated | CPT/HCPCS: 99282 ==

== ENCOUNTER 2023-08-05 00:59 | Emergency (ER) | payer SELFPAY | END 2023-08-05 02:00 | disposition home or self-care (01) | LOC: ERS 00:59 | DX: Z76.0 Encounter for issue of repeat prescription (principal); F17.290 Nicotine dependence, other tobacco product, uncomplicated | CPT/HCPCS: 99282 ==

== ENCOUNTER 2024-01-10 04:51 | Emergency (ER) | payer SELFPAY ==
[2024-01-10] MEDS ORDERED: cefTRIAXone (ROCEPHIN) 500 MG VIAL ONE (05:29)
[2024-01-10] MEDS ORDERED: Lidocaine 1% PF 5 ML VIAL ONE (05:29)
[2024-01-10] MEDS ORDERED: Doxycycline 100 MG CAP ONE (05:29)
[2024-01-10 05:50] LABS: Bacteria/HPF None Seen HPF (None Seen); Bilirubin Negative (Negative); Blood, Urine Negative (Negative); CAUTI Indications for Culture Dysuria,urgency,freq; Clarity Clear (Clear); Glucose, Urine (Dipstick) Normal (Negative); Ketone, Urine Negative (Negative); Leukocyte 500 Leu/uL (Negative); Nitrite Negative (Negative); Protein, Urine (Dipstick) Negative (Neg-Trace); RBC/HPF None Seen HPF (0-3); Specific Gravity, Urine 1.007 (1.002-1.036); Squamous Epithelial None Seen HPF (0-3); Urobilinogen Normal mg/dL (Less than 2); WBC/HPF Greater than 50 HPF (0-3)
[2024-01-10 05:58] LABS: Urine Culture Reflex Yes Yes
[2024-01-10 14:31] LABS: Chlam.trachomatis by PCR,Urine Not Detected (NotDetected); GC N.gonorrhoeae PCR,UrineVOID DETECTED (NotDetected)
== END 2024-01-10 05:45 | disposition home or self-care (01) ==
LOC: ERS 04:51
DX: R36.9 Urethral discharge, unspecified (principal); F17.290 Nicotine dependence, other tobacco product, uncomplicated
CPT/HCPCS: 81001; 87086; 87491; 87591; 96372; 99284; J0696

== ENCOUNTER 2024-11-13 21:50 | Emergency (ER) | payer OTHER | END 2024-11-13 23:29 | disposition left against medical advice (07) | LOC: ERS 21:50 | DX: Z53.21 Procedure and treatment not carried out due to patient leaving prior to being seen by health care provider (principal) ==